=== PATIENT | female | born 1970 | race American Indian/Alaskan Native ===

== ENCOUNTER 2017-07-15 08:32 | Outpatient (CLI) | payer BC ==
--- NOTE | 2017-07-15 11:58 | Fluoroscopy Report ---
CYSTOGRAM STATIC History: Urinary tract infection, mixed incontinence. Findings: 10 fluoroscopic images were obtained during this exam. A Cervatnes catheter was inserted for retrograde administration of water-soluble contrast. 300 cc of Cystografin was infused into the bladder. There is normal filling of the bladder with no evidence of mucosal defect or filling defect. No fistula or vesicoureteral reflux. The postvoid film demonstrates complete emptying of the bladder. Impression: Normal exam.
== END 2017-07-15 08:33 | disposition home or self-care (01) ==
LOC: FLUORO 08:32
PROVIDERS: ATTEND Urology
DX: N39.0 Urinary tract infection, site not specified (principal); N39.46 Mixed incontinence
CPT/HCPCS: 51600; 74430; Q9958